=== PATIENT | female | born 1970 | race American Indian/Alaskan Native ===

== ENCOUNTER 2016-11-24 13:30 | Emergency (ER) | payer BC ==
[2016-11-24] MEDS ORDERED: Sodium Chloride 0.9% 1,000 ML IV ONE ×2 (13:51→16:13)
[2016-11-24 14:04] LABS: BASO # 0.1 K/uL (0.0-0.2); BASO % 0.7 % (0.0-2.0); EOS % 0.4 % (0.0-4.0); HEMATOCRIT 40.5 % (34.0-47.0); LYMPH # 1.6 K/uL (1.0-4.3); LYMPH % 17.7 % (20.0-40.0); MEAN CELL VOLUME 94.6 fL (81.0-99.0); MEAN CORPUSCULAR HGB CONC 33.8 g/dL (33.0-37.0); MEAN PLATELET VOLUME 10.6 fL (7.2-11.7); MONO # 0.6 K/uL (0.0-0.8); MONO % 6.6 % (0.0-10.0); RED CELL DISTRIBUTION WIDTH 13.1 % (11.5-14.5); WHITE BLOOD COUNT 9.1 K/uL (4.8-10.8)
[2016-11-24 14:08] VITALS: RESP 20; TEMP 98.4; O2SAT 98
[2016-11-24 14:17] LABS: CHLORIDE 95 mmol/L (98-107)
[2016-11-24 14:18] LABS: POTASSIUM 4.4 mmol/L (3.6-5.2); SODIUM 134 mmol/L (132-148)
[2016-11-24 14:20] LABS: ALB/GLOB RATIO 1.3 (1.0-2.1); AST/SGOT 24 U/L (14-36); BILIRUBIN,TOTAL 0.6 mg/dL (0.2-1.3); CARBON DIOXIDE 25 mmol/L (22-30); GFR AFRICAN-AMERICAN > 60; TOTAL PROTEIN 7.5 g/dL (6.3-8.3)
[2016-11-24 14:21] LABS: ALKALINE PHOSPHATASE 59 U/L (38-126); ALT/SGPT 24 U/L (9-52); BLOOD UREA NITROGEN 19 mg/dL (7-17); CALCIUM 9.1 mg/dl (8.6-10.4); GLUCOSE,RANDOM 387 mg/dL (65-105)
[2016-11-24 15:35] VITALS: BP 126/70; PULSE 97
[2016-11-24] MEDS ORDERED: Sodium Chloride 0.9% 1,000 ML ONE (16:15)
--- NOTE | 2016-11-24 16:21 | C.PDOC ---
History Of Present Illness Patient is a 46 y/o female that presents to the emergency department for evaluation of sudden onset of bilateral leg cramps. Pt states muscle cramping began when she was riding the bike in a marathon, and reports riding about 7-8 miles. Notes that cramping initially began in one leg, she "pushed through it" but then it started in other leg after continuing to ride the bike further. Drinking and eating a banana earlier. H/o muscle cramps 2 months ago once which self resolved. Otherwise, denies any difficulty breathing, shortness of breath, fever, chills, extremity weakness/numbness, or any other associated symptoms at this time. Time Seen by Provider: 11/24/16 13:48 Chief Complaint (Nursing): Lower Extremity Problem/Injury History Per: Patient History/Exam Limitations: no limitations Onset/Duration Of Symptoms: Days Current Symptoms Are (Timing): Still Present Recent travel outside of the [place]: No Additional History Per: Patient Past Medical History Reviewed: Historical Data, Nursing Documentation, Vital Signs Vital Signs: Last Vital Signs Temp 98.4 F 11/24/16 13:36 Pulse 97 H 11/24/16 15:34 Resp 20 11/24/16 15:34 BP 126/70 11/24/16 15:34 Pulse Ox 98 11/24/16 17:36 - Medical History PMH: HTN (gestational) Family History: States: No Known Family Hx - Social History Hx Alcohol Use: Yes Hx Substance Use: No - Immunization History Hx Tetanus Toxoid Vaccination: No Hx Influenza Vaccination: Yes Hx Pneumococcal Vaccination: Yes Review Of Systems Except As Marked, All Systems Reviewed And Found Negative. Constitutional: Negative for: Fever, Chills Cardiovascular: Negative for: Chest Pain, Palpitations, Light Headedness Respiratory: Negative for: Cough, Shortness of Breath Musculoskeletal: Positive for: Leg Pain (bilateral ) Neurological: Negative for: Weakness, Numbness, Headache, Dizziness Physical Exam - Physical Exam Appears: Non-toxic, No Acute Distress Skin: Normal Color, Warm, Dry Head: Atraumatic, Normacephalic Eye(s): bilateral: Normal Inspection, EOMI Nose: Normal Oral Mucosa: Moist Neck: Normal ROM, Supple Chest: Symmetrical, No Tenderness Cardiovascular: Rhythm Regular, No Murmur Respiratory: Normal Breath Sounds, No Rales, No Rhonchi, No Wheezing Gastrointestinal/Abdominal: Normal Exam, Soft, No Tenderness Back: No CVA Tenderness, No Vertebral Tenderness Extremity: Normal ROM, Capillary Refill (< 2 sec.), No Deformity, No Swelling, Other (b/l Lower extremities "sore") Extremity: Bilateral: Normal Color And Temperature, Normal ROM Pulses: Left Dorsalis Pedis: Normal, Right Dorsalis Pedis: Normal Neurological/Psych: Oriented x3, Normal Speech, Normal Motor, Normal Sensation Gait: Steady ED Course And Treatment - Laboratory Results Result Diagrams: 11/24/16 13:54 11/24/16 13:54 O2 Sat by Pulse Oximetry: 98 (on RA) Pulse Ox Interpretation: Normal Progress Note: Labs was ordered and reviewed. Patient was given IV fluids, Valium, and Toradol in the ER. On reassessment, pt reports improvement of symptoms, notes feeling better. Pt was hyperglycemic in the ER. Pt states she was taking medicine for diabetes last year, but was taken off the meds by her PMD after she started to lose weight. Pt notes having a high carb diet in preparation for the race. Dsicsused concern for elevated glucose and strict improtance for repeat sugar. denies polyuria, polydypsia, or any other hyperglycemic symptoms. Case discussed [facility] Dr Esquivel who instructs CK addtional. Discussed results, agreed upon plan and discharge. Disposition - Disposition Disposition: HOME/ ROUTINE Disposition Time: 16:19 Condition: STABLE Additional Instructions: Drink plenty of fluids. Follow up with your primary doctor in 1-2 days for repeat sugar and re-evaluation. Return to ER if symptoms persist or worsen. Instructions: Hyperglycemia, Non-Diabetic (ED) - Clinical Impression Clinical Impression: Dehydration, Hyperglycemia, Muscle cramp - PA / WELLNESS NURSE RN / Resident Statement MD/DO has reviewed & agrees with the documentation as recorded. - Scribe Statement The provider has reviewed the documentation as recorded by the Eliudibchris Bardales All medical record entries made by the Eliudibchris were at my direction and personally dictated by me. I have reviewed the chart and agree that the record accurately reflects my personal performance of the history, physical exam, medical decision making, and the department course for this patient. I have also personally directed, reviewed, and agree with the discharge instructions and disposition.
== END 2016-11-24 17:00 | disposition home or self-care (01) ==
LOC: C.ER 13:30
DX: R73.9 Hyperglycemia, unspecified (principal); E86.0 Dehydration; R25.2 Cramp and spasm
CPT/HCPCS: 80053; 82550; 82948; 85025; 96361; 96374; 99285; J1885; J7040